=== PATIENT | male | born 1985 | race Caucasian/White ===

== ENCOUNTER 2019-08-16 19:33 | Emergency (ER) | payer BC ==
[~2019-08-16] VITALS: Ht 177.8 cm; Wt 88.5 kg
[2019-08-16] MEDS ORDERED: ADDERALL 20 MG20 MG (19:39)
[2019-08-16] MEDS ORDERED: PROAIR HFA8.5 GM (19:40)
[2019-08-16 20:24] LABS: ABSOLUTE BASOPHILS 0.1 thou/uL (0.0-0.2); ABSOLUTE EOSINOPHILS 0.1 thou/uL (0.0-0.7); ABSOLUTE LYMPHOCYTES 1.7 thou/uL (0.8-5.3); ABSOLUTE MONOCYTES 0.3 thou/uL (0.0-1.2); ABSOLUTE NEUTROPHILS 7.5 thou/uL (1.6-8.1); BASOPHILS 0.8 %; HEMATOCRIT 42.4 % (42.0-52.0); HEMOGLOBIN 14.6 gm/dL (14.0-18.0); LYMPHOCYTES 17.9 %; MCH 28.6 pg (26.0-34.0); MCHC 34.5 g/dL (28.0-37.0); MCV 82.9 fL (80.0-100.0); MONOCYTES 3.3 %; MPV 7.5 fl. (7.2-11.1); NUCLEATED RBCS 0 /100WBC; PLATELET COUNT* 295 thou/uL (150-400); RBC 5.11 mil/uL (4.50-6.00); WBC 9.7 thou/uL (4.0-11.0)
[2019-08-16 20:33] LABS: CALCIUM 8.3 mg/dL (8.5-10.1); POTASSIUM 3.6 mmol/L (3.5-5.1)
[2019-08-16 20:37] LABS: PROTIME 10.7 Seconds (9.20-11.50)
[2019-08-16 20:43] LABS: ALBUMIN 3.9 g/dL (3.4-5.0); TOTAL BILIRUBIN 0.4 mg/dL (<0.1-1.0); TOTAL PROTEIN 7.5 g/dL (6.4-8.2)
[2019-08-16 23:00] VITALS: BP 132/82
--- NOTE | 2019-08-17 13:00 | EKG ---
[place] [address] ELECTROCARDIOGRAM REPORT Name: DAVID ARMSTRONG Zen Room: [facility] [place]#: [id number] Admission: 08/16/19 Attend Phys: Discharge: 08/16/19 Date of : 83 Date of Service: 08/16/191936 Report #: [id number] THIS REPORT FOR: //name// [facility] ED Test Date: 2019-08-16 Test Time: 19:37:28 Pat Name: DAVID ARMSTRONG Department: Room: Gender: Wind Technician: [place] : 1985 Requested By: Nory Malone Order Number: [id number] MD: Kraig Cm Measurements Intervals [place] Rate: 97 P: 36 DC: 177 QRS: 63 QRSD: 91 T: 27 QT: 355 QTc: 451 Interpretive Statements Sinus rhythm Left atrial enlargement nonspecific st changes No previous ECG available for comparison Electronically Signed On 08-17-2019 12:59:41 [employer] by Kraig Cm [email or web address] <ELECTRONICALLY SIGNED> By: Kraig Cm MD, [facility] 08/17/19 [id number] 36 Kraig Cm MD, FACC /EPI
== END 2019-08-16 23:02 | disposition home or self-care (01) ==
LOC: M.ERS 19:33
PROVIDERS: Emergency Medicine
DX: R07.89 Other chest pain (principal)